=== PATIENT | male | born 1990 | race Caucasian/White ===

== ENCOUNTER → 2017-10-27 | Outpatient (CLI) | payer BC, OTHER ==
[~2017-10-27] MED LIST: HYDR25CA5 PO; TYLENOL
--- NOTE | 2017-10-27 09:49 | Diagnostic Imaging Report ---
PROCEDURE: US Gallbladder. TECHNIQUE: Multiple real-time grayscale images were obtained over the right upper quadrant in various projections. INDICATION: Right upper quadrant pain. FINDINGS: The liver is normal in size without focal lesions. There is no biliary duct dilatation. The common bile duct measures less than 3 mm. There is a 6 mm gallbladder polyp. There is no cholelithiasis, gallbladder wall thickening or pericholecystic fluid. Visualized portions of the pancreas are unremarkable. Right kidney measures 7.4 x 2.9 x 4.2 cm. Left kidney measures 12.3 x 6.1 x 5.2 cm. There is no ascites. IMPRESSION: A 6 mm gallbladder polyp. Atrophy of the right kidney. Otherwise unremarkable right upper quadrant ultrasound Dictated by: Dictated on workstation # [id number]
== END ==
LOC: RAD 06:40
PROVIDERS: ATTEND Nurse Practitioner Family
DX: K82.4 Cholesterolosis of gallbladder (principal); R19.5 Other fecal abnormalities
CPT/HCPCS: 76705

== ENCOUNTER → 2019-12-31 | Outpatient (CLI) | payer BC ==
[2019-12-31 15:20] LABS: HEMOGLOBIN 15.7 g/dL (13.3-17.7); MEAN PLATELET VOLUME 10.2 fL (9.0-12.2)
[2019-12-31 15:38] LABS: ALANINE AMINOTRANSFERASE 36 U/L (0-55); ALBUMIN 4.6 GM/DL (3.2-4.5); ALKALINE PHOSPHATASE 54 U/L (40-136); AMYLASE 60 U/L (25-125); BILIRUBIN,TOTAL 0.9 MG/DL (0.1-1.0); BUN/CREATININE RATIO 11; CARBON DIOXIDE 25 MMOL/L (21-32); CHLORIDE 106 MMOL/L (98-107); CREATININE SERUM 1.14 MG/DL (0.60-1.30); GFR ESTIMATED > 60; GLUCOSE 83 MG/DL (70-105); LIPASE 16 U/L (8-78); POTASSIUM 4.1 MMOL/L (3.6-5.0); SODIUM 141 MMOL/L (135-145)
== END ==
LOC: LAB 15:01
PROVIDERS: ATTEND Nurse Practitioner Family
DX: R10.11 Right upper quadrant pain (principal); R19.7 Diarrhea, unspecified
CPT/HCPCS: 36415; 80053; 82150; 83690; 85027

== ENCOUNTER → 2020-01-03 | Outpatient (CLI) | payer BC ==
--- NOTE | 2020-01-03 09:06 | Diagnostic Imaging Report ---
EXAMINATION: US Abdomen limited. TECHNIQUE: Multiple real-time grayscale images were obtained over the right upper quadrant in various projections. REASON FOR EXAM: Right upper quadrant pain. COMPARISON: 10/27/2017. FINDINGS: The liver is normal in size and shape. The liver echogenicity is within normal limits. There are no focal lesions. No intrahepatic biliary dilatation is present. The common bile duct is not dilated and measures 3 mm. The main portal vein is hepatopedal. There is no ascites in the upper abdomen. There is no evidence of cholelithiasis, gallbladder wall thickening or pericholecystic fluid. Small echogenic focus is seen adherent to the gallbladder wall, which may represent polyp. This is unchanged in size compared to the prior exam. Sonographic Everett's sign is negative. The visualized portion of the head of the pancreas are within normal limits. The body and tail of the pancreas are not well visualized due to overlying bowel gas. The visualized portions of the IVC and aorta appear normal. The right kidney measures approximately 6.2 cm in length and has a normal appearance. IMPRESSION: 1. No cholelithiasis or acute cholecystitis. 2. Stable small polyp within the gallbladder lumen. No dedicated follow-up is recommended regarding this polyp. Dictated by: Dictated on workstation # [id number]
== END ==
LOC: RAD 07:59
PROVIDERS: ATTEND Nurse Practitioner Family
DX: J30.89 Other allergic rhinitis (principal); R10.11 Right upper quadrant pain; R10.84 Generalized abdominal pain; R19.7 Diarrhea, unspecified
CPT/HCPCS: 76705

== ENCOUNTER → 2020-01-05 | Outpatient (CLI) | payer BC ==
[~2020-01-05] MED LIST changes: +CATHETER FLUSH 10 ML SYR IV PRN
--- NOTE | 2020-01-05 10:14 | Diagnostic Imaging Report ---
INDICATION: Right upper quadrant pain. Patient was administered 5.4 mCi technetium 99m Choletec intravenously and imaging over the abdomen was performed. At 1 hour patient ingested 8 ounces of ensure and a gallbladder ejection fraction was calculated. There is homogeneous uptake of activity by the liver. There is prompt excretion of activity into the common duct and gallbladder. There is normal passage of activity into the small bowel. Gallbladder ejection fraction is normal at 75%. IMPRESSION: 1. Patent cystic duct and common bile duct. 2. Normal gallbladder ejection fraction of 75%. Dictated by: Dictated on workstation # [id number]
== END ==
LOC: CARD 07:35
PROVIDERS: ATTEND Nurse Practitioner Family
DX: J30.89 Other allergic rhinitis (principal); R10.11 Right upper quadrant pain; R10.83 Colic; R19.7 Diarrhea, unspecified
CPT/HCPCS: 78227; A9537

== ENCOUNTER 2020-03-13 22:53 | Emergency (ER) | payer BC ==
[~2020-03-13] VITALS: Ht 190.5 cm; Wt 74.4 kg
[~2020-03-13 22:53] MED LIST changes: -CATHETER FLUSH 10 ML SYR IV PRN
[2020-03-13] MEDS ORDERED: LACTATED RINGERS 1,000 ML IV ONE ×2 (23:20→23:30)
--- NOTE | 2020-03-13 23:23 | ED GU-Male ---
General Stated Complaint: INABILITY TO URINATE Source: patient Exam Limitations: no limitations History of Present Illness Date Seen by Provider: Mar 13, 2020 Time Seen by Provider: 23:07 Initial Comments Patient presents to the ER by private conveyance with chief complaint of inability to urinate since surgery earlier today with Dr. Escoto for his winstone r. He says when he had his knee surgery he also had difficulty urinating. He has been taking hydrocodone 7.5 on a scheduled basis. He says he is scheduled to have it at 1030 but is not having any pain and has not taken it yet. He has had ureter surgery when he was a child. The patient also states he has had a history of prostatic infections. He does not routinely have problems with his prostate or difficulty urinating and does not take any medicines for this. Allergies and Home Medications Allergies Coded Allergies: No Known Drug Allergies (Unverified , 04/26/09) Patient Home Medication List Home Medication List Reviewed: Yes Review of Systems Review of Systems Constitutional: No chills, No diaphoresis EENTM: No ear discharge, No ear pain Respiratory: No cough, No short of breath Cardiovascular: No Hx of Intervention, No palpitations Gastrointestinal: abdominal pain; No nausea, No vomiting Genitourinary: denies discharge, denies dysuria Musculoskeletal: No back pain, No joint pain Skin: No pruritus, No rash All Other Systemes Reviewed Negative Unless Noted: Yes Past Bxewpdi-Hyqkao-Zjsqhf Hx Patient Social History Alcohol Use: Denies Use Recreational Drug Use: No Smoking Status: Never a Smoker Recent Foreign Travel: No Contact w/Someone Who Travel: No Recent Hopitalizations: No Past Medical History Bladder Surgery, Orthopedic Reproductive Disorders: No Family Medical History No Pertinent Family Hx Physical Exam Vital Signs Vital Signs - First Documented 03/13/20 23:06 Temp 36.2 Pulse 131 Resp 20 B/P (MAP) 179/106 (130) Pulse Ox 97 O2 Delivery Room Air Capillary Refill : Height, Weight, BMI Height: 6'3" Weight: 165lbs. oz. 74.756235ks; 20.87 BMI Method:Stated General Appearance: WD/WN, mild distress HEENT: PERRL/EOMI, pharynx normal (Dry oropharynx) Neck: full range of motion, normal inspection Cardiovascular: normal peripheral pulses, regular rate, rhythm Respiratory: lungs clear, normal breath sounds, no respiratory distress, no accessory muscle use Gastrointestinal: normal bowel sounds, non tender, no organomegaly Extremities: non-tender, normal inspection, normal capillary refill Neurologic/Psychiatric: alert, normal mood/affect, oriented x 3 Skin: normal color, warm/dry, other (Clean dry intact laparoscopic wounds on the abdomen) Progress/Results/Core Measures Suspected Sepsis SIRS Temperature: Pulse: Respiratory Rate: Laboratory Tests 03/13/20 23:35: White Blood Count 6.2 Blood Pressure / Mean: Laboratory Tests 03/13/20 23:35: Creatinine 1.01, Platelet Count 191, Total Bilirubin 0.7 Results/Orders Lab Results Laboratory Tests Test 03/13/20 23:27 03/13/20 23:35 Range/Units Urine Color YELLOW Urine Clarity CLEAR Urine pH 7.0 5-9 Urine Specific [place] 1.015 L 1.016-1.022 Urine Protein NEGATIVE NEGATIVE Urine Glucose (UA) 1+ H NEGATIVE Urine Ketones TRACE H NEGATIVE Urine Nitrite NEGATIVE NEGATIVE Urine Bilirubin NEGATIVE NEGATIVE Urine Urobilinogen 0.2 < = 1.0 MG/DL Urine Leukocyte Esterase NEGATIVE NEGATIVE Urine RBC (Auto) NEGATIVE NEGATIVE Urine RBC NONE /HPF Urine WBC RARE /HPF Urine Squamous Epithelial Cells NONE /HPF Urine Crystals NONE /LPF Urine Bacteria NEGATIVE /HPF Urine Casts NONE /LPF Urine Mucus NEGATIVE /LPF Urine Culture Indicated NO White Blood Count 6.2 4.3-11.0 10^3/uL Red Blood Count 5.02 4.30-5.52 10^6/uL Hemoglobin 15.3 13.3-17.7 g/dL Hematocrit 44 40-54 % Mean Corpuscular Volume 88 80-99 fL Mean Corpuscular Hemoglobin 31 25-34 pg Mean Corpuscular Hemoglobin Concent 35 32-36 g/dL Red Cell Distribution Width 11.8 10.0-14.5 % Platelet Count 191 130-400 10^3/uL Mean Platelet Volume 9.8 9.0-12.2 fL Immature Granulocyte % (Auto) 0 % Neutrophils (%) (Auto) 92 H 42-75 % Lymphocytes (%) (Auto) 6 L 12-44 % Monocytes (%) (Auto) 2 0-12 % Eosinophils (%) (Auto) 0 0-10 % Basophils (%) (Auto) 0 0-10 % Neutrophils # (Auto) 5.7 1.8-7.8 10^3/uL Lymphocytes # (Auto) 0.3 L 1.0-4.0 10^3/uL Monocytes # (Auto) 0.2 0.0-1.0 10^3/uL Eosinophils # (Auto) 0.0 0.0-0.3 10^3/uL Basophils # (Auto) 0.0 0.0-0.1 10^3/uL Immature Granulocyte # (Auto) 0.0 0.0-0.1 10^3/uL Neutrophils % (Manual) 91 % Lymphocytes % (Manual) 4 % Monocytes % (Manual) 4 % Band Neutrophils 1 % Hypochromasia SLIGHT Sodium Level 135 135-145 MMOL/L Potassium Level 4.2 3.6-5.0 MMOL/L Chloride Level 102 98-107 MMOL/L Carbon Dioxide Level 20 L 21-32 MMOL/L Anion Gap 13 5-14 MMOL/L Blood Urea Nitrogen 9 7-18 MG/DL Creatinine 1.01 0.60-1.30 MG/DL Estimat Glomerular Filtration Rate > 60 BUN/Creatinine Ratio 9 Glucose Level 148 H 70-105 MG/DL Calcium Level 9.3 8.5-10.1 MG/DL Corrected Calcium 8.5-10.1 MG/DL Total Bilirubin 0.7 0.1-1.0 MG/DL Aspartate Amino Transf (AST/SGOT) 38 H 5-34 U/L Alanine Aminotransferase (ALT/SGPT) 34 0-55 U/L Alkaline Phosphatase 60 40-136 U/L Total Protein 7.0 6.4-8.2 GM/DL Albumin 4.6 H 3.2-4.5 GM/DL My Orders Orders - SMOOTH FELDMAN Ua Culture If Indicated (03/13/20 23:17) Cbc With Automated Diff (03/13/20 23:17) Comprehensive Metabolic Panel (03/13/20 23:17) Catheter(Urinary) Insert & Ass ,15 (03/13/20 23:17) Ed Iv/Invasive Line Start (03/13/20 23:23) Lactated Ringers (Lr 1000 Ml Iv Solution (03/13/20 23:30) Lactated Ringers (Lr 1000 Ml Iv Solution (03/13/20 23:20) Tamsulosin Capsule (Flomax Capsule) (03/13/20 23:30) Ceftriaxone For Iv Use (Rocephin For I (03/13/20 23:45) Water (Sterile) For Injection (Sterile W (03/13/20 23:33) Ceftriaxone For Iv Use (Rocephin For I (03/13/20 23:34) Manual Differential (03/13/20 23:35) Medications Given in ED Current Medications Medications Dose Ordered Sig/Aries Route Start Time Stop Time Status Last Admin Dose Admin Ceftriaxone Sodium 1000 mg/ Sterile Water 10 ml @ 200 mls/hr ONCE ONCE IV 03/13/20 23:45 03/13/20 23:47 DC 03/13/20 23:38 200 MLS/HR Lactated Ringer's 1,000 ml @ 0 mls/hr Q0M ONCE IV 03/13/20 23:30 03/13/20 23:31 DC 03/13/20 23:31 0 MLS/HR Tamsulosin HCl 0.4 mg ONCE ONCE PO 03/13/20 23:30 03/13/20 23:31 DC 03/13/20 23:36 0.4 MG Vital Signs/I&O 03/13/20 23:06 Temp 36.2 Pulse 131 Resp 20 B/P (MAP) 179/106 (130) Pulse Ox 97 O2 Delivery Room Air Capillary Refill : Progress Note #1: Time: 23:26 Progress Note Plan to put a Mcbride catheter in place to see if he has urinary retention or not. If he does we will leave it in place and have him follow-up with Dr. BLUE, urology who he is already familiar with. If he does not we have suggested that he not take as much of the hydrocodone as that could be contributing to urinary retention and his dry mouth. He does have a tachycardia of 120 and has dry oral mucosas are going to give him a liter of fluids and reevaluate. We will check some basic labs. His abdomen is not rigid or any more tender than what is expected. No fever. Progress Note #2: Time: 23:29 Progress Note 1300 cc out initially per nursing staff. We will give him some Flomax and leave the Mcbride catheter in place. Urinalysis ordered. Progress Note #3: Time: 00:11 Progress Note Patient's liter of fluids are in. His labs are unremarkable. He has put out about 17 or 1800 cc and is still flowing. The patient is adamant that he would like the Mcbride catheter back out before he leaves. He has agreed to take the Flomax. We have explained to him that he would have a better than not chance of obstruction and urinary retention and have to return to the ER tonight. He says if that happens he is okay with it. Were going to give him some more time for his bladder to continue draining. We did give him a dose of antibiotics IV but his urinalysis does not look particularly infected. He has agreed to follow-up with urology. Progress Note #4: Time: 00:48 Progress Note The patient is still draining urine and has had a total of 3500 cc out. I suspect he probably has chronic urinary retention as it would be less likely he would retain this much urine acutely. Discussed with the patient possibility that there is a chronic situation and that he should follow up with urology. He was still insistent and having the catheter out tonight. Departure Impression Primary Impression: Acute urinary retention Additional Impression: Status post laparoscopic cholecystectomy Disposition: HOME, SELF-CARE Condition: Improved Departure-Patient Inst. Decision time for Depature: 01:00 Referrals: PATRICIA CAMACHO DO (PCP/Family) Primary Care Physician ALE BLUE MD Patient Instructions: Urinary Retention (DC) Add. Discharge Instructions: Try to avoid using the hydrocodone if you do not need. It is for severe breakthrough pain only. You may use Tylenol, ibuprofen, Aleve, heat etc. Tomorrow call Dr. Blue, urology and request follow-up appointment. Return to the ER promptly if you are having difficulty getting your urine out. Flomax 1 capsule every evening for the next 1 to 2 weeks until you see the urologist. Scripts Tamsulosin HCl (Flomax) 0.4 Mg Cap 0.4 MG PO HS for 14 Days, #14 CAP 0 Refills Prov: SMOOTH FELDMAN 03/14/20 Copy Copies To 1: ALE BLUE MD, TITUS J Mar 13, 2020 23:23
[2020-03-13] MEDS ORDERED: TAMSULOSIN 0.4 MG (FLOMAX) CAP PO ONE (23:30)
[2020-03-13 23:33] LABS: BILIRUBIN,URINE NEGATIVE (NEGATIVE); CLARITY,URINE CLEAR; COLOR,URINE YELLOW; GLUCOSE, URINE (UA) 1+ (NEGATIVE); KETONES,URINE TRACE (NEGATIVE); LEUKOCYTE ESTERASE ,URINE NEGATIVE (NEGATIVE); NITRITE,URINE NEGATIVE (NEGATIVE); PROTEIN,URINE NEGATIVE (NEGATIVE)
[2020-03-13] MEDS ORDERED: WATER (STERILE) FOR INJECTION 10 ML ONE (23:33)
[2020-03-13] MEDS ORDERED: cefTRIAXone 1,000 MG IV (ROCEPHIN) VIAL ONE (23:34)
[2020-03-13] MEDS ORDERED: cefTRIAXone FOR IV USE 1,000 MG in WATER (STERILE) FOR INJECTION 10 ML IV ONE (23:45)
[2020-03-13 23:49] LABS: BASOPHILS % (AUTO) 0 % (0-10); EOSINOPHILS % (AUTO) 0 % (0-10); HEMATOCRIT 44 % (40-54); HEMOGLOBIN 15.3 g/dL (13.3-17.7); LYMPHOCYTES # (AUTO) 0.3 10^3/uL (1.0-4.0); LYMPHOCYTES % (AUTO) 6 % (12-44); MEAN CORPUSCULAR HEMOGLOBIN 31 pg (25-34); MEAN CORPUSCULAR HGB CONC 35 g/dL (32-36); MEAN CORPUSCULAR VOLUME 88 fL (80-99); MEAN PLATELET VOLUME 9.8 fL (9.0-12.2); MONOCYTES # (AUTO) 0.2 10^3/uL (0.0-1.0); MONOCYTES % (AUTO) 2 % (0-12); NEUTROPHILS # (AUTO) 5.7 10^3/uL (1.8-7.8); NEUTROPHILS % (AUTO) 92 % (42-75); PLATELET COUNT 191 10^3/uL (130-400); WHITE BLOOD COUNT 6.2 10^3/uL (4.3-11.0)
[2020-03-13 23:53] LABS: ALBUMIN 4.6 GM/DL (3.2-4.5); CHLORIDE 102 MMOL/L (98-107); POTASSIUM 4.2 MMOL/L (3.6-5.0); SODIUM 135 MMOL/L (135-145)
[2020-03-13 23:54] LABS: CALCIUM 9.3 MG/DL (8.5-10.1)
[2020-03-13 23:54] LABS: WBC,URINE RARE /HPF
[2020-03-13 23:55] LABS: BACTERIA,URINE NEGATIVE /HPF
[2020-03-13 23:55] LABS: GLUCOSE 148 MG/DL (70-105)
[2020-03-13 23:56] LABS: CARBON DIOXIDE 20 MMOL/L (21-32)
[2020-03-13 23:57] LABS: BILIRUBIN,TOTAL 0.7 MG/DL (0.1-1.0)
[2020-03-13 23:59] LABS: ALKALINE PHOSPHATASE 60 U/L (40-136); CREATININE SERUM 1.01 MG/DL (0.60-1.30); GFR ESTIMATED > 60
[2020-03-14] LABS: BUN/CREATININE RATIO 9
[2020-03-14 00:02] LABS: ALANINE AMINOTRANSFERASE 34 U/L (0-55)
--- NOTE | 2020-03-14 00:12 | NUR ---
CONTACTED , LIZ, REGARDING PT UPDATE.
[2020-03-14 00:36] LABS: BAND NEUTROPHILS 1 %; HYPOCHROMASIA SLIGHT; LYMPHOCYTES % (MANUAL) 4 %; MONOCYTES % (MANUAL) 4 %; NEUTROPHILS % (MANUAL) 91 %
[2020-03-14] MEDS ORDERED: TMSL.4C PO (01:05)
--- NOTE | 2020-03-14 01:10 | NUR ---
URINARY CATHETER REMOVED PER PT REQUEST. TOTAL 3500ML URINARY OUTPUT SINCE CATHETER PLACEMENT.
[2020-03-14 01:15] VITALS: BP 139/81
== END 2020-03-14 01:16 | disposition home or self-care (01) ==
LOC: EDUNIT# 22:53 → ER 22:55
DX: R33.9 Retention of urine, unspecified (principal); Z90.49 Acquired absence of other specified parts of digestive tract
CPT/HCPCS: 36415; 51702; 80053; 81000; 85007; 85027

== ENCOUNTER → 2020-04-05 | Outpatient (CLI) | payer BC ==
[~2020-04-05] MED LIST changes: +TMSL.4C PO
--- NOTE | 2020-04-05 17:24 | Diagnostic Imaging Report ---
PROCEDURE: US Renal Bilateral. TECHNIQUE: Multiple real-time grayscale images were obtained over the kidneys in various projections bilaterally. INDICATION: Urinary retention COMPARISON: There are no prior renal ultrasound examinations available for comparison. Both kidneys were identified. The left kidney is normal in size measuring 12.5 x 5.0 x 5.3 cm. However, the right kidney is small and measures only 7.1 x 2.8 x 2.6 cm. The reason for the small size of the right kidney is not certain. This could be a congenital anomaly. Long-standing renal artery stenosis could also present in this manner. There is no solid renal mass or hydronephrosis of either kidney. The renal cortices are normal in thickness and echogenicity. The bladder was imaged during the course of the exam. The bladder is quite distended by urine. The prevoid bladder volume was 677.3 mm. Following voiding there was still 378.3 mL of urine within the bladder. There is no obvious bladder mass evident. Both ureteral jets were noted. IMPRESSION: 1. There is no evidence for a solid renal mass or for an acute abnormality of either kidney. 2. The left kidney is small. There reason for this is not certain. Considerations as above. 3. There is marked distention of the urinary bladder by urine. There was also poor clearing of the urine from the bladder with over 50% residual volume following voiding. Dictated by: Dictated on workstation # [id number]
== END ==
LOC: RAD 14:23
PROVIDERS: ATTEND Nurse Practitioner Family
DX: N41.0 Acute prostatitis (principal); N32.89 Other specified disorders of bladder; N27.0 Small kidney, unilateral; R33.9 Retention of urine, unspecified
CPT/HCPCS: 76770

== ENCOUNTER 2020-12-08 03:15 | Emergency (ER) | payer BC ==
[~2020-12-08] VITALS: Ht 188 cm; Wt 74.8 kg
--- NOTE | 2020-12-08 03:26 | ED Upper Extremity ---
General Stated Complaint: CUT FINGER ON NIGHT STAND Source: patient History of Present Illness Date Seen by Provider: Dec 08, 2020 Time Seen by Provider: 03:23 Initial Comments PT STATES AROUND 0300, HE GOT UP TO GO TO THE BATHROOM AND TRIPPED OVER A TOY AND HIT A GLASS ON THE NIGHT STAND AND IT BROKE AND HE CUT HIS RIGHT THUMB ON PIECE OF BROKEN GLASS NO PARESTHESIAS OR MOTOR DEFICITS PT IS RIGHT HANDED NO PRIOR INJURY TO THIS THUMB. LAST TETANUS 1 YEAR AGO. Allergies and Home Medications Allergies Coded Allergies: No Known Drug Allergies (Unverified , 04/26/09) Patient Home Medication List Home Medication List Reviewed: Yes Cephalexin (Cephalexin) 500 Mg Tablet, 500 MG PO QID Prescribed by: BELLE TERAN on 12/08/20 0347 Discontinued Medications Tamsulosin HCl (Flomax) 0.4 Mg Cap, 0.4 MG PO HS Discontinued Reason: No Longer Taking Prescribed by: SMOOTH FELDMAN on 03/14/20 0105 Last Action: Discontinued Review of Systems Constitutional: no symptoms reported Musculoskeletal: see HPI Skin: see HPI Psychiatric/Neurological: No Symptoms Reported Past Dlyjfbp-Azzqjh-Efprur Hx Immunizations Up To Date Tetanus Booster (TDap): Less than 5yrs Past Medical History Surgeries: Yes (BLADDER SURGERY) Bladder Surgery, Orthopedic Respiratory: No Cardiac: No Neurological: No Reproductive Disorders: No Genitourinary: Yes (BLADDER SURGERY) Gastrointestinal: No Musculoskeletal: No Endocrine: No Cancer: No Psychosocial: No Family Medical History No Pertinent Family Hx Physical Exam Vital Signs Vital Signs - First Documented 12/08/20 03:26 Temp 36.2 Pulse 112 Resp 16 B/P (MAP) 186/91 (122) Pulse Ox 98 O2 Delivery Room Air Capillary Refill : Height, Weight, BMI Height: 6'3" Weight: 165lbs. oz. [id number]; 20.00 BMI Method:Stated General Appearance: WD/WN, other (ANXIOUS) Hand: Right (THUMB WITH 2 CM LACERATION TO PALMAR ASPECT NEAR IP JOINT ) Neurologic/Tendon: normal sensation, normal motor functions, normal tendon functions Neurologic/Psychiatric: no motor/sensory deficits, alert, oriented x 3 Skin: warm/dry, pallor Procedures/Interventions Other Wound Location RIGHT THUMB Wound Length (cm): 2 Wound's Depth, Shape: linear, sub Q Wound Explored: no foreign body removed Betadine Prep?: No (BETASEPT AND SALINE) Anesthesia: 1% Lidocaine Suture: Ethlion Suture Size: 4-0 Number of Sutures: 4 Layer Closure?: 1 Sterile Dressing Applied?: Yes Progress PT TOLERATED FAIR--DID BECOME PALE, DIAPHORETIC, NAUSEATED AND FELT FAINT DURING REPAIR, BUT RECOVERED FAIRLY QUICKLY. Progress/Results/Core Measures Results/Orders My Orders Orders - BELLE TERAN DO Lidocaine 1% Inj 20 Ml (Xylocaine 1% Inj (12/08/20 03:27) Ed Ortho/Other Supplies Order (12/08/20 03:44) Wound Dressing-Ed (12/08/20 03:44) Rx-Cephalexin Capsule (Rx-Keflex Capsule (12/08/20 03:45) Medications Given in ED Current Medications Medications Dose Ordered Sig/Aries Route Start Time Stop Time Status Last Admin Dose Admin Cephalexin HCl 250 mg ONCE ONCE PO 12/08/20 03:45 12/08/20 03:46 DC 12/08/20 03:47 250 MG Lidocaine HCl 20 ml STK-MED ONCE .ROUTE 12/08/20 03:27 12/08/20 03:29 DC 12/08/20 03:31 20 ML Vital Signs/I&O 12/08/20 03:26 Temp 36.2 Pulse 112 Resp 16 B/P (MAP) 186/91 (122) Pulse Ox 98 O2 Delivery Room Air Departure Impression Primary Impression: Laceration of right thumb Disposition: 01 HOME, SELF-CARE Condition: Stable Departure-Patient Inst. Decision time for Depature: 03:45 Referrals: PATRICIA CAMACHO DO (PCP/Family) Primary Care Physician Patient Instructions: Laceration Repair With Stitches (DC) Add. Discharge Instructions: LEAVE DRESSING IN PLACE FOR 24 HOURS, THEN YOU MAY REMOVE AND CLEAN WOUND TWICE A DAY WITH ANTIBACTERIAL SOAP AND WATER ON A Q-TIP, AND OTHERWISE KEEP CLEAN AND DRY WEAR SPLINT AT ALL TIMES TYLENOL AND MOTRIN NEEDED FOR PAIN SUTURES OUT IN 10 DAYS--RETURN TO ER FOR REMOVAL Scripts Cephalexin (Cephalexin) 500 Mg Tablet 500 MG PO QID, #40 TAB Prov: BELLE TERAN DO 12/08/20 Work/School Note: Work Release Form Date Seen in the Emergency Department: Dec 08, 2020 Return to Work: Dec 10, 2020 Other Restrictions Listed Below: NO USE OF RIGHT HAND X 10 DAYS WOUND NEED TO BE KEPT CLEAN AND DRY Images Extremities-Upper 1 - Laceration BELLE TERAN DO Dec 08, 2020 03:26
[2020-12-08] MEDS ORDERED: LIDOCAINE 1% INJ 20 ML 20 ML VIAL ONE (03:27)
[2020-12-08] MEDS ORDERED: RX-CEPHALEXIN (KEFLEX) 250 MG CAP PPK#4 PO ONE (03:45)
[2020-12-08] MEDS ORDERED: CEPH500T PO (03:47)
[2020-12-08 03:53] VITALS: BP 108/65
== END 2020-12-08 03:53 | disposition home or self-care (01) ==
LOC: EDUNIT# 03:15 → ER 03:20
DX: S61.011A Laceration without foreign body of right thumb without damage to nail, initial encounter (principal); W25.XXXA Contact with sharp glass, initial encounter
CPT/HCPCS: 12001; 29130

== ENCOUNTER 2020-12-18 18:15 | Emergency (ER) | payer BC ==
[~2020-12-18 18:15] MED LIST changes: +CEPH500T PO
[2020-12-18 18:45] VITALS: BP 161/97
== END 2020-12-18 18:40 | disposition home or self-care (01) ==
LOC: EDUNIT# 18:15 → ER 18:17
DX: Z48.02 Encounter for removal of sutures (principal)
CPT/HCPCS: 99281

== ENCOUNTER → 2021-02-27 | Outpatient (CLI) | payer OTHER ==
[2021-02-27 19:13] LABS: BASOPHILS % (AUTO) 0 % (0-10); EOSINOPHILS # (AUTO) 0.1 10^3/uL (0.0-0.3); EOSINOPHILS % (AUTO) 1 % (0-10); HEMATOCRIT 45 % (40-54); HEMOGLOBIN 15.9 g/dL (13.3-17.7); LYMPHOCYTES # (AUTO) 1.9 10^3/uL (1.0-4.0); LYMPHOCYTES % (AUTO) 26 % (12-44); MEAN CORPUSCULAR HEMOGLOBIN 31 pg (25-34); MEAN CORPUSCULAR HGB CONC 35 g/dL (32-36); MEAN CORPUSCULAR VOLUME 90 fL (80-99); MONOCYTES # (AUTO) 0.6 10^3/uL (0.0-1.0); MONOCYTES % (AUTO) 9 % (0-12); NEUTROPHILS # (AUTO) 4.7 10^3/uL (1.8-7.8); NEUTROPHILS % (AUTO) 64 % (42-75); PLATELET COUNT 216 10^3/uL (130-400); WHITE BLOOD COUNT 7.3 10^3/uL (4.3-11.0)
[2021-02-27 19:39] LABS: ALANINE AMINOTRANSFERASE 23 U/L (0-55); ALBUMIN 4.7 GM/DL (3.2-4.5); ALKALINE PHOSPHATASE 55 U/L (40-136); BILIRUBIN,TOTAL 0.5 MG/DL (0.1-1.0); BUN/CREATININE RATIO 16; CALCIUM 9.6 MG/DL (8.5-10.1); CARBON DIOXIDE 24 MMOL/L (21-32); CHLORIDE 105 MMOL/L (98-107); CREATINE KINASE MB 0.9 NG/ML (<6.6); CREATININE SERUM 1.08 MG/DL (0.60-1.30); GFR ESTIMATED 80; GLUCOSE 91 MG/DL (70-105); POTASSIUM 4.3 MMOL/L (3.6-5.0); SODIUM 140 MMOL/L (135-145); TOTAL PROTEIN 7.4 GM/DL (6.4-8.2)
== END ==
LOC: RAD 17:56
PROVIDERS: ATTEND Physician Assistant
DX: R00.2 Palpitations (principal)
CPT/HCPCS: 36415; 80053; 82553; 83874; 84484; 85025

== ENCOUNTER → 2021-03-11 | Outpatient (CLI) | payer OTHER | LOC: CARD 11:00 | PROVIDERS: ATTEND Physician Assistant | DX: R00.2 Palpitations (principal) | CPT/HCPCS: 93225; 93226 ==